=== PATIENT | male | born 1940 | race Caucasian/White ===

== ENCOUNTER 2019-02-13 09:20 | Day surgery (SDC) | payer OTHER ==
[~2019-02-13] VITALS: Ht 180.3 cm; Wt 65.9 kg
[~2019-02-13 09:20] MED LIST: ? BP MED; ACEASPCAF; ALBU90OI; ALBU90OI6 INH; ALEN70; ALKA SELTZER; AMOCLA500 PO; ASCO1ER; BUDE6HFA INH; CAFFEINE; CALC/MAG/ZINC; CALCAVITDA; CALCIUM CARBONATE; CLON1; DIPH25; DOCSEN; ERGO400; ERGOTAMINE; FERR325 PO; FLUNOI; FORM12IH; LEVA.63IS; LISI10; METO50 PO; MULVITMINF; NAPR220; OMEP20ER; OXYACE5T; OXYGEN; PEPTO-BISMOL; PRED10 PO; PRED20; PRIM50 PO; RANI150; SUMA25 PO; TAMS.4ER PO; TESTOSTERONE CYP; TIOT18; TIOTROPIUM; TOPI25 PO; TRAZ50; VERA240ER; VITNEPH; [UNRECOGNIZED DRUG - REMARK]
--- NOTE | 2019-02-13 11:03 | NUR ---
02/13/19 1103 Daniela Hwang OXYGEN 10L VIA NON REBREATHER
== END 2019-02-13 11:47 | disposition home or self-care (01) ==
LOC: ORSCSDS 09:20
PROVIDERS: Internal Medicine Gastroenterology
PROC: 0DBK8ZX Excision of Ascending Colon, Via Natural or Artificial Opening Endoscopic, Diagnostic (ICD-10-PCS; principal; 2019-02-13 11:00)
DX: R19.4 Change in bowel habit (principal); R10.9 Unspecified abdominal pain; D12.2 Benign neoplasm of ascending colon; K57.30 Diverticulosis of large intestine without perforation or abscess without bleeding; K64.8 Other hemorrhoids; I10 Essential (primary) hypertension; J44.9 Chronic obstructive pulmonary disease, unspecified; Z99.81 Dependence on supplemental oxygen; Z79.899 Other long term (current) drug therapy
CPT/HCPCS: 88305; J2704; J7120

== ENCOUNTER 2021-09-21 09:15 | Emergency (ER) | payer OTHER ==
[~2021-09-21] VITALS: Ht 157.5 cm; Wt 65.8 kg
[2021-09-21 10:08] LABS: BASOPHILS ABSOLUTE AUTO 0.03 K/mm3 (0.00-0.23); BASOPHILS PERCENT AUTO 0 % (0-2); EOSINOPHILS ABSOLUTE AUTO 0.02 K/mm3 (0.00-0.68); EOSINOPHILS PERCENT AUTO 0 % (0-6); Hematocrit 44.4 % (37.0-53.0); Hemoglobin 14.4 g/dL (13.5-17.5); IMMATURE GRAN ABSOLUTE AUTO 0.04 K/mm3 (0.00-0.10); IMMATURE GRAN PERCENT AUTO 0 % (0-1); LYMPHOCYTES ABSOLUTE AUTO 0.86 K/mm3 (0.84-5.20); LYMPHOCYTES PERCENT AUTO 6 % (21-46); MONOCYTES ABSOLUTE AUTO 0.69 K/mm3 (0.16-1.47); MONOCYTES PERCENT AUTO 5 % (4-13); Mean Corpuscular HGB 30.5 pg (26.0-34.0); Mean Corpuscular HGB Conc 32.4 g/dL (31.5-36.5); Mean Corpuscular Volume 94 fL (80-100); Mean Platelet Volume 10.9 fL (9.1-12.4); NEUTROPHILS ABSOLUTE AUTO 11.81 K/mm3 (1.96-9.15); NEUTROPHILS PERCENT AUTO 88 % (41-73); Platelet Count 257 K/mm3 (150-400); RDW Coefficient Variation 11.9 % (11.7-14.2); RDW Standard Deviation 41.6 fL (35.1-46.3); Red Blood Cell Count 4.72 M/mm3 (4.30-5.90); White Blood Cell Count 13.45 K/mm3 (4.00-11.30)
[2021-09-21 10:20] LABS: Alanine Aminotransfer (ALT/SGP 27 U/L (12-78); Albumin, Blood 3.5 g/dL (3.4-5.0); Albumin/Globulin Ratio 1.1 (0.8-1.8); Alk Phos 98 U/L (50-136); Anion Gap 5 mmol/L (6-16); Aspartate Aminotrans (AST/SGOT 25 U/L (12-37); Bilirubin, Total 0.5 mg/dL (0.1-1.0); Blood Urea Nitrogen 23 mg/dL (8-24); Bun/Creatinine Ratio 25.6 (12.0-20.0); CO2, Blood 33 mmol/L (21-32); Calcium, Blood 9.2 mg/dL (8.5-10.1); Chloride, Blood 101 mmol/L (98-108); Globulin, Blood 3.1 g/dL (2.2-4.0); Glomerular Filtration Rate >60 (60-); Glucose, Blood 102 mg/dL (70-99); Potassium, Blood 4.2 mmol/L (3.5-5.5); Sodium, Blood 139 mmol/L (136-145); Total Protein, Blood 6.6 g/dL (6.4-8.2)
[2021-09-21 10:37] LABS: Influenza A, PCR NEGATIVE (NEGATIVE); Influenza B, PCR NEGATIVE (NEGATIVE); Resp Syncytial Virus, PCR NEGATIVE (NEGATIVE); SARS-Cov-2 (COVID-19) PCR, MMC NEGATIVE (NEGATIVE)
[2021-09-21] MEDS ORDERED: AMOCLA875 PO (11:11)
[2021-09-21] MEDS ORDERED: AZIT250 PO (11:11)
== END 2021-09-21 12:08 | disposition home or self-care (01) ==
LOC: ER 09:15
PROVIDERS: Emergency Medicine
DX: J44.0 Chronic obstructive pulmonary disease with (acute) lower respiratory infection (principal); J18.9 Pneumonia, unspecified organism; Z79.899 Other long term (current) drug therapy; I10 Essential (primary) hypertension; M19.90 Unspecified osteoarthritis, unspecified site; Z20.822 Contact with and (suspected) exposure to COVID-19; Z99.81 Dependence on supplemental oxygen
CPT/HCPCS: 0241U; 71045; 80053; 85025; 93005; 93010; 94644; 96374; 99284-25; A9270; J2930

== ENCOUNTER 2021-10-12 11:04 | Observation (INO) | payer OTHER ==
[~2021-10-12] VITALS: Ht 175.3 cm; Wt 58.0 kg
[~2021-10-12 11:04] MED LIST changes: +AMOCLA875 PO; +AZIT250 PO
[2021-10-12] MEDS ORDERED: IPRAT-ALBUT 0.5-3 ML INH (11:22)
[2021-10-12] MEDS ORDERED: DUTA.5 PO (11:24)
[2021-10-12] MEDS ORDERED: GABA300 PO (11:25)
[2021-10-12] MEDS ORDERED: Dyazide 37.5/251 EA PO (11:26)
[2021-10-12] MEDS ORDERED: STRIVERDI RESPIM4 G1 PO (11:27)
[2021-10-12] MEDS ORDERED: DULERA 100 MCG/13 GM INH (11:27)
[2021-10-12] MEDS ORDERED: OMEP20ER PO (11:28)
[2021-10-12] MEDS ORDERED: PRED5 PO (11:29)
[2021-10-12] MEDS ORDERED: Primidone50 MG PO (11:29)
[2021-10-12] MEDS ORDERED: PROP10 PO (11:30)
[2021-10-12] MEDS ORDERED: SUMA25 PO (11:30)
[2021-10-12] MEDS ORDERED: TAMS.4ER PO (11:30)
[2021-10-12] MEDS ORDERED: TOPI100 PO (11:31)
[2021-10-12] MEDS ORDERED: TRAZ50 PO (11:31)
[2021-10-12 11:38] LABS: BASOPHILS ABSOLUTE AUTO 0.03 K/mm3 (0.00-0.23); BASOPHILS PERCENT AUTO 0 % (0-2); EOSINOPHILS ABSOLUTE AUTO 0.07 K/mm3 (0.00-0.68); EOSINOPHILS PERCENT AUTO 1 % (0-6); Hematocrit 46.5 % (37.0-53.0); Hemoglobin 14.9 g/dL (13.5-17.5); IMMATURE GRAN ABSOLUTE AUTO 0.03 K/mm3 (0.00-0.10); IMMATURE GRAN PERCENT AUTO 0 % (0-1); LYMPHOCYTES ABSOLUTE AUTO 0.69 K/mm3 (0.84-5.20); LYMPHOCYTES PERCENT AUTO 7 % (21-46); MONOCYTES ABSOLUTE AUTO 0.72 K/mm3 (0.16-1.47); MONOCYTES PERCENT AUTO 7 % (4-13); Mean Corpuscular HGB 30.5 pg (26.0-34.0); Mean Corpuscular Volume 95 fL (80-100); Mean Platelet Volume 10.4 fL (9.1-12.4); NEUTROPHILS ABSOLUTE AUTO 8.23 K/mm3 (1.96-9.15); NEUTROPHILS PERCENT AUTO 84 % (41-73); Platelet Count 267 K/mm3 (150-400); RDW Coefficient Variation 12.1 % (11.7-14.2); RDW Standard Deviation 42.4 fL (35.1-46.3); Red Blood Cell Count 4.88 M/mm3 (4.30-5.90); White Blood Cell Count 9.77 K/mm3 (4.00-11.30)
[2021-10-12 12:01] LABS: Alanine Aminotransfer (ALT/SGP 34 U/L (12-78); Albumin, Blood 3.5 g/dL (3.4-5.0); Albumin/Globulin Ratio 0.9 (0.8-1.8); Alk Phos 86 U/L (50-136); Anion Gap 3 mmol/L (6-16); Aspartate Aminotrans (AST/SGOT 23 U/L (12-37); Bilirubin, Total 0.4 mg/dL (0.1-1.0); Blood Urea Nitrogen 25 mg/dL (8-24); Bun/Creatinine Ratio 39.4 (12.0-20.0); CO2, Blood 42 mmol/L (21-32); Calcium, Blood 9.5 mg/dL (8.5-10.1); Chloride, Blood 94 mmol/L (98-108); Creatinine, Blood 0.64 mg/dL (0.60-1.20); Globulin, Blood 3.7 g/dL (2.2-4.0); Glomerular Filtration Rate >60 (60-); Glucose, Blood 116 mg/dL (70-99); Potassium, Blood 3.6 mmol/L (3.5-5.5); Sodium, Blood 139 mmol/L (136-145); Total Protein, Blood 7.2 g/dL (6.4-8.2); Troponin I 0.177 ng/mL (0.000-0.040)
[2021-10-12 13:05] LABS: PO2 Arterial 88.1 mmHg (80-100); pH Blood Arterial 7.34 (7.35-7.45)
[2021-10-12 13:06] LABS: PCO2 Arterial 83.7 mmHg (35-45)
--- NOTE | 2021-10-12 15:11 | NUR ---
Echocardiogram completed.
[2021-10-12] MEDS ORDERED: POLY500 PO (15:49)
[2021-10-12] MEDS ORDERED: CARB10OTL BOTHEARS (15:51)
[2021-10-12 16:52] LABS: Base Excess Venous 19.5 mmol/L; Bicarbonate Venous 38.4 mmol/L (24.0-30.0); PCO2 Venous 83.3 mmHg (38-42); PO2 Venous 33.2 mmHg (38-42); pH Blood Venous 7.34 (7.34-7.37)
--- NOTE | 2021-10-12 19:04 | NUR ---
PATIENT CAME TO THE MEDICAL FLOOR LATE AFTERNOON. HE WAS BROUGHT TO IMAGING FOR A PE STUDY. PATIENT HAS [address], ONE IN EACH ARM. PATIENT IS ON 4 LITERS 02 NC. HE USES A URINAL AT BEDSIDE. PATIENT HAS SOME COMPLAINT OF TAILBONE HURING WHILE LYING ON BED. SKIN IS INTACT AT THIS POINT. PATIENT STATES "I HAVEN'T SLEPT IN 27 HOURS', AND IS REQUESTING THAT WE MEDICATE HIM SO THAT HE CAN SLEEP. PATIENT ATE HIS DINNER, BUT REQUESTS THAT HE BE GIVEN VEGGIES RATHER THAN MEAT, AND SANDWICHES SUCH EGG SALAD TO MAKE IT EASIER FOR HIM TO EAT.
--- NOTE | 2021-10-13 04:05 | NUR ---
SHIFT SUMMARY AOX3 NEW ADMIT PLEASANT AND COOPERATIVE INDEPENT WITH STAND BY ASSISSIT FOR SAFETY WALKING TO THE BATHROOM.PT CURRENTLY ON OXYGEN 3L/PM SAT 94%LUNGS SOUND DEMISHED LOUIE CONT ABT AND BREATHNG TX,ON CONTINUOS TELE RUNING AT SINUS 71 PER TELE TELCH.
[2021-10-13 05:01] LABS: Hematocrit 39.3 % (37.0-53.0); Hemoglobin 12.5 g/dL (13.5-17.5); Mean Corpuscular HGB 30.6 pg (26.0-34.0); Mean Corpuscular HGB Conc 31.8 g/dL (31.5-36.5); Mean Corpuscular Volume 96 fL (80-100); Mean Platelet Volume 10.6 fL (9.1-12.4); Platelet Count 218 K/mm3 (150-400); RDW Coefficient Variation 11.9 % (11.7-14.2); RDW Standard Deviation 42.7 fL (35.1-46.3); Red Blood Cell Count 4.08 M/mm3 (4.30-5.90); White Blood Cell Count 6.58 K/mm3 (4.00-11.30)
[2021-10-13 05:35] LABS: Alanine Aminotransfer (ALT/SGP 27 U/L (12-78); Albumin, Blood 2.9 g/dL (3.4-5.0); Albumin/Globulin Ratio 0.9 (0.8-1.8); Alk Phos 69 U/L (50-136); Anion Gap 2 mmol/L (6-16); Aspartate Aminotrans (AST/SGOT 14 U/L (12-37); Bilirubin, Total 0.4 mg/dL (0.1-1.0); Blood Urea Nitrogen 28 mg/dL (8-24); CO2, Blood 42 mmol/L (21-32); Calcium, Blood 8.9 mg/dL (8.5-10.1); Chloride, Blood 95 mmol/L (98-108); Globulin, Blood 3.2 g/dL (2.2-4.0); Glomerular Filtration Rate >60 (60-); Glucose, Blood 94 mg/dL (70-99); Potassium, Blood 3.6 mmol/L (3.5-5.5); Sodium, Blood 139 mmol/L (136-145); Total Protein, Blood 6.1 g/dL (6.4-8.2)
--- NOTE | 2021-10-13 17:47 | NUR ---
PATIENT CONTINUES ON 3 L O2. HUMIDITY WAS ADDED TO 02 TODAY, AFTER PATIENT HAD SOME BLOOD IN NARES. THIS EVENING, AFTER GETTING UP TO THE BR HE IS RUNNING SINUS TACK AT 117. RECHECK 15 MINUTES LATER 111. NO CHEST PAIN, NOT SOB. PATIENT REPORTS THAT HE HAS A "POCKET IN MY THROAT", WHERE FOOD GETS STUCK WHEN HE TRIES TO SWALLOW. HE WAS OBSERVED HAVING DIFFICULTY SWALLOWING/COUGHING DUE TO THE RAW CARROT IN HIS SALAD. HEEL PROTECTORS WERE GIVEN TO PATIENT TODAY AFTER COMPLAINTS OF HEEL PAIN. PATIENT STATES EFFECTIVE.
--- NOTE | 2021-10-14 03:55 | NUR ---
SHIFT SUMMARY NO CHEAST PAIN IN THIS SHIFT PATIENT ON TELE RUNNING SINUS AT 92 PER COPY AND PRINT ASSOCIATE.NO NOSE BLEEDING IN THIS SHIFT NOTED.PT PULLLED OUT HIS LEFT WRISK IV AT 4AM NO ACTIVE BLEEDING NOTED.ASSISTED SEVERAL TIMES TO THE BATHROOM BY STAFF C/O PAIN TO HIS LOUIE LEGS PRN MEDICATION ADM PER ORDER WITH POSITIVE EFFECT LEGS ELEVATED ON THE PILLOW FOR CONFORT
[2021-10-14] MEDS ORDERED: PRED20 PO (12:23)
[2021-10-14] MEDS ORDERED: ASPI81CH PO (12:27)
[2021-10-14] MEDS ORDERED: BUSP5 PO (12:29)
[2021-10-14] MEDS ORDERED: AZITHROMYCIN500 M1 PO (12:29)
[2021-10-14] MEDS ORDERED: SPIR25 PO (12:30)
[2021-10-14] MEDS ORDERED: VISBIOME 112.51 EACH PO (12:32)
--- NOTE | 2021-10-14 13:36 | NUR ---
SHIFT SUMMARY PT EDUCATED ON NEW MEDS AND DC INSTRUCTIONS. NO FURTHER QUESTIONS REQUIRED AT TIME OF EDUCATION. IV REMOVED & INTACT. PTS FRIEND HERE TO TAKE PT HOME AND BROUGHT HOME O2 TANK. NO ACUTE CHANGES IN ASSESSMENT PRIOR TO DC. PT WHEELED OUT BY AIDE. BELONGINGS SENT WITH HIME.
== END 2021-10-14 13:34 | disposition home or self-care (01) ==
LOC: ER 11:04 → MEDS 14:01 → ENPENDDIS 10-14 11:22 → MEDS 10-14 13:34
PROVIDERS: Emergency Medicine; Nurse Practitioner Acute Care; ADMIT Hospitalist
DX: J18.9 Pneumonia, unspecified organism (principal); J44.1 Chronic obstructive pulmonary disease with (acute) exacerbation; J44.0 Chronic obstructive pulmonary disease with (acute) lower respiratory infection; J96.11 Chronic respiratory failure with hypoxia; R07.89 Other chest pain; I11.0 Hypertensive heart disease with heart failure; I50.810 Right heart failure, unspecified; N40.0 Benign prostatic hyperplasia without lower urinary tract symptoms; E78.5 Hyperlipidemia, unspecified; R79.89 Other specified abnormal findings of blood chemistry; Z87.891 Personal history of nicotine dependence; Z66 Do not resuscitate; Z99.81 Dependence on supplemental oxygen
CPT/HCPCS: 36415; 36600; 71045; 71260; 80053; 82803; 84145; 84484; 85025; 85027; 93005; 93010; 93306; 94640; 96365; 96372; 96372-59; 96375; 96376; 99285-25; A9270; G0378; J0456; J0696; J1650; J2930; J7030; J7050; J7512; Q9967

== ENCOUNTER 2021-11-07 22:17 | Observation (INO) | payer OTHER ==
[~2021-11-07] VITALS: Ht 190.5 cm; Wt 60.2 kg
[~2021-11-07 22:17] MED LIST changes: +ASPI81CH PO; +AZITHROMYCIN500 M1 PO; +BUSP5 PO; +CARB10OTL BOTHEARS; +DULERA 100 MCG/13 GM INH; +DUTA.5 PO; +Dyazide 37.5/251 EA PO; +GABA300 PO; +IPRAT-ALBUT 0.5-3 ML INH; +OMEP20ER PO; +POLY500 PO; +PRED20 PO; +PRED5 PO; +PROP10 PO; +Primidone50 MG PO; +SPIR25 PO; +STRIVERDI RESPIM4 G1 PO; +TOPI100 PO; +TRAZ50 PO; +VISBIOME 112.51 EACH PO
[2021-11-07 22:42] LABS: BASOPHILS ABSOLUTE AUTO 0.03 K/mm3 (0.00-0.23); BASOPHILS PERCENT AUTO 0 % (0-2); EOSINOPHILS ABSOLUTE AUTO 0.06 K/mm3 (0.00-0.68); EOSINOPHILS PERCENT AUTO 1 % (0-6); Hemoglobin 12.4 g/dL (13.5-17.5); IMMATURE GRAN ABSOLUTE AUTO 0.03 K/mm3 (0.00-0.10); IMMATURE GRAN PERCENT AUTO 0 % (0-1); LYMPHOCYTES ABSOLUTE AUTO 0.83 K/mm3 (0.84-5.20); LYMPHOCYTES PERCENT AUTO 10 % (21-46); MONOCYTES ABSOLUTE AUTO 0.63 K/mm3 (0.16-1.47); MONOCYTES PERCENT AUTO 8 % (4-13); Mean Corpuscular HGB 30.8 pg (26.0-34.0); Mean Corpuscular HGB Conc 30.2 g/dL (31.5-36.5); Mean Corpuscular Volume 102 fL (80-100); Mean Platelet Volume 10.2 fL (9.1-12.4); NEUTROPHILS ABSOLUTE AUTO 6.49 K/mm3 (1.96-9.15); NEUTROPHILS PERCENT AUTO 80 % (41-73); Platelet Count 250 K/mm3 (150-400); RDW Coefficient Variation 12.7 % (11.7-14.2); RDW Standard Deviation 47.8 fL (35.1-46.3); Red Blood Cell Count 4.02 M/mm3 (4.30-5.90); White Blood Cell Count 8.07 K/mm3 (4.00-11.30)
[2021-11-07 23:06] LABS: Alanine Aminotransfer (ALT/SGP 25 U/L (12-78); Albumin, Blood 3.2 g/dL (3.4-5.0); Alk Phos 151 U/L (50-136); Anion Gap 2 mmol/L (6-16); Aspartate Aminotrans (AST/SGOT 13 U/L (12-37); Bilirubin, Total 0.4 mg/dL (0.1-1.0); Blood Urea Nitrogen 24 mg/dL (8-24); Bun/Creatinine Ratio 36.3 (12.0-20.0); CO2, Blood 42 mmol/L (21-32); Calcium, Blood 9.2 mg/dL (8.5-10.1); Chloride, Blood 100 mmol/L (98-108); Creatinine, Blood 0.66 mg/dL (0.60-1.20); Globulin, Blood 3.1 g/dL (2.2-4.0); Glomerular Filtration Rate >60 (60-); Glucose, Blood 81 mg/dL (70-99); Potassium, Blood 4.4 mmol/L (3.5-5.5); Sodium, Blood 144 mmol/L (136-145); Total Protein, Blood 6.3 g/dL (6.4-8.2)
[2021-11-07 23:26] LABS: Influenza A, PCR NEGATIVE (NEGATIVE); Influenza B, PCR NEGATIVE (NEGATIVE); Resp Syncytial Virus, PCR NEGATIVE (NEGATIVE); SARS-Cov-2 (COVID-19) PCR, MMC NEGATIVE (NEGATIVE)
[2021-11-08 02:49] LABS: Source, Urine Clean Catch
[2021-11-08 02:56] LABS: Bilirubin, Urine Neg (Neg); Blood, Urine 5+ (Neg); Glucose Qualitative, Urine Neg (Neg); Ketones, Urine 4+ (Neg); Leukocyte Esterase, Urine Neg (Neg); Nitrite, Urine Neg (Neg); Protein, Urine 2+ (Neg); Specific Gravity, Urine 1.025 (1.003-1.022); Urobilinogen, Urine NORM (Normal)
[2021-11-08 03:00] LABS: Appearance, Urine Hazy (Clear); Color, Urine Amber (P-Yellow)
[2021-11-08 03:02] LABS: Bacteria Not Seen /hpf; Red Blood Cells, Urine TNTC /hpf (0-2); Squamous Epithelial Cells Not Seen /hpf (Few); White Blood Cells, Urine Not Seen /hpf (0-5)
--- NOTE | 2021-11-09 02:07 | NUR ---
STROBOROMA OPERATOR SUMMARY/ ADMISSION NOTE PATIENT WAS ADMITTED FROM THE ED. HE IS ALERT AND ORTINTED TO SELF AND PLACE. HE IS ALSO ABLE TO ANSWER MOST QUESTIONS APPROPRIATELY BUT A LITTLE DELAYED. HE WAS MADE COMFORTABLE. ASSESMENT DONE AND DOCUMENTED. HIS V/S ALSO CHECKED. SAFETY MEASURES IN PLACE. SKIN ASSESSMENT DONE AND NO PRESSURE RELATED WOUNDS NOTED. THERE SCATTERED BRUISING ON THE UPPER EXTREMMITY. HIS QUESTIONS WERE ANSWERED AND CALL LIGHT PLACED WITHIN REACH. WILL CONTINUE TO MONITOR HIM.
--- NOTE | 2021-11-09 18:32 | NUR ---
SHIFT SUMMARY PATIENT IS ALERT AND ORIENTED X2, SELF AND FAMILY. PATIENT IS PLEASANT AND COOPERTAIVE WITH CARE. PATIENT IS ON 3LPM OF O2 VIA NASAL CANNULA. THE PATIENT HAS A TAO DRAINING TO GRAVITY YELLOW/MARVIN URINE. PATIENT MAY POSSIBLY DISCHARGE TO SNF TOMORROW. NO ACUTE CHANGES. VITAL SIGNS STABLE. CALL LIGHT WITHIN REACH.
--- NOTE | 2021-11-10 04:23 | NUR ---
LAUNDRY OPERATOR FINISHING SUMMARY PATIENT HAD A FAIR SHIFT, WITH NO ISSUES OVERNIGHT. ASSESSMENT AND VITALS CHECKED AND RECORDED. HIS V/S WERE STABLE, WILL CONTINUE TO MONITOR HIM.
--- NOTE | 2021-11-10 17:49 | NUR ---
PT HAS BEEN QUITE PLEASANT TODAY. COONTINUES TO NEED 2 ASST WITH GAIT BELT AND FWW TO AMBULATE. VERY SHAKEY/TREMULOUS. NO C/O PAIN TODAY. FAMILY AND METAL POURER IN TO SEE TODAY. PENDING PLACEMENT. BED INLOW POSITION, CALL LITE IN REACH, BED ALARM ON FOR SAFETY
--- NOTE | 2021-11-11 05:28 | NUR ---
SHIFT SUMMARY PATEINT ALERT AND ORIENTED PLESANT FARA PAIN NO ACUTE CHANGES IN THIS SHIFT
[2021-11-11 11:00] LABS: Influenza A, PCR NEGATIVE (NEGATIVE); Influenza B, PCR NEGATIVE (NEGATIVE); Resp Syncytial Virus, PCR NEGATIVE (NEGATIVE); SARS-Cov-2 (COVID-19) PCR, MMC NEGATIVE (NEGATIVE)
[2021-11-11] MEDS ORDERED: GUAI600T33 PO (13:29)
[2021-11-11] MEDS ORDERED: METO25 PO (13:30)
[2021-11-11] MEDS ORDERED: SENN187 PO (13:30)
--- NOTE | 2021-11-11 14:24 | NUR ---
PATIENT DISCHARGED TO [facility] BY W/C, PICKED UP [facility] PERSONNEL. USING O2 @ 3 L/MIN [place], HAS HOSPITAL O2 TANK FOR TRANSPORT. REPORT GIVEN TO MARVIN AT FACILITY. OFF UNIT AT 1423. NO PERSONAL BELONGINGS LEFT BEHIND.
== END 2021-11-11 14:25 ==
LOC: ER 22:17 → MEDS 22:18
PROVIDERS: Emergency Medicine; ADMIT Internal Medicine
DX: J44.1 Chronic obstructive pulmonary disease with (acute) exacerbation (principal); J96.22 Acute and chronic respiratory failure with hypercapnia; J96.21 Acute and chronic respiratory failure with hypoxia; I10 Essential (primary) hypertension; N40.0 Benign prostatic hyperplasia without lower urinary tract symptoms; R00.0 Tachycardia, unspecified; E43 Unspecified severe protein-calorie malnutrition; F41.9 Anxiety disorder, unspecified; K59.00 Constipation, unspecified; R25.1 Tremor, unspecified; Z20.822 Contact with and (suspected) exposure to COVID-19; Z66 Do not resuscitate
CPT/HCPCS: 0241U; 36415; 51701; 51702; 71045; 80053; 81001; 83880; 84145; 84484; 85025; 93005; 93010; 94640; 94760; 96372; 97110; 97162; 97530; 99285-25; A9270; G0378; J1650; J2765